=== PATIENT | female | born 1965 | race Hispanic/Latino ===

== ENCOUNTER 2017-09-05 11:30 | Observation (INO) | payer OTHER ==
[~2017-09-05] VITALS: Ht 154.9 cm; Wt 52.8 kg
[2017-09-05 12:40] LABS: BASOPHILS % (AUTO) 0.6 % (0.0-5.0); EOSINOPHILS % (AUTO) 1.2 % (0.0-8.0); HEMATOCRIT 31.1 % (36-48); LYMPHOCYTES % (AUTO) 22.4 % (21.0-51.0); MEAN CORPUSCULAR HEMOGLOBIN 33.2 pg (27.0-33.0); MEAN CORPUSCULAR HGB CONC 35.2 g/dL (32.0-36.0); MEAN CORPUSCULAR VOLUME 94.1 fL (79-99); MONOCYTES % (AUTO) 5.3 % (3.0-13.0); NEUTROPHILS % (AUTO) 70.5 % (40.0-77.0); PLATELET COUNT (AUTO) 314 K/uL (130-400); RED CELL DISTRIBUTION WIDTH 12.9 % (11.0-15.5); WHITE BLOOD COUNT (AUTO) 7.7 K/uL (4.8-10.8)
[2017-09-05 13:05] VITALS: BP 100/53
[2017-09-05] MEDS ORDERED: DULO60CA44 PO (14:56)
[2017-09-05] MEDS ORDERED: CALDOLOR 800MG+NS 250ML 250 ML IV SCH (15:30)
[2017-09-05] MEDS ORDERED: CEFAZOLIN SODIUM 1 GM VIAL IVP SCH (15:30)
[2017-09-06] VITALS (24 sets, daily range): BP systolic 106–152; BP diastolic 59–91
[2017-09-06] MEDS ORDERED: CALDOLOR 800MG+NS 250ML 250 ML IV ONE (10:25)
[2017-09-06] MEDS ORDERED: GLYCOPYRROLATE 0.2 MG/ML 5 ML VIAL ONE (10:29)
[2017-09-06] MEDS ORDERED: LIDOCAINE PF 2% 5ML ABBOJECT ONE (10:29)
[2017-09-06] MEDS ORDERED: NEOSTIGMINE 5MG/5ML SYR IV ONE (10:29)
[2017-09-06] MEDS ORDERED: DEXAMETHASONE SOD PHOSPHATE 10MG/ML 1ML VIAL ONE (10:29)
[2017-09-06] MEDS ORDERED: MIDAZOLAM HCL 1 MG/ML 2ML VIAL ONE (10:29)
[2017-09-06] MEDS ORDERED: NALOXONE HCL 0.4 MG/1 ML ML IVP PRN (10:30)
[2017-09-06] MEDS ORDERED: DiphenhydrAMINE HCL 50 MG/ML VIAL IV PRN (10:30)
[2017-09-06] MEDS ORDERED: PROMETHAZINE HCL 25 MG/ML 1ML AMPULE IM PRN (10:30)
[2017-09-06] MEDS ORDERED: DOCUSATE SODIUM 100 MG CAP PO PRN (10:30)
[2017-09-06] MEDS ORDERED: FENTANYL CITRATE PF 50 MCG/1 ML 5ML AMP IV ONE (10:30)
[2017-09-06] MEDS ORDERED: ONDANSETRON HCL 4 MG/2 ML VIAL IV PRN (10:30)
[2017-09-06] MEDS ORDERED: METOCLOPRAMIDE 10 MG/2 ML VIAL IV PRN (10:30)
[2017-09-06] MEDS ORDERED: DIPHENHYDRAMINE HCL 25 MG CAPSULE PO PRN (10:30)
[2017-09-06] MEDS ORDERED: BISACODYL 10 MG SUPP.RECT RC PRN (10:30)
[2017-09-06] MEDS ORDERED: MEPERIDINE 10MG/ML 50ML PCA 50 ML IV PRN (10:30)
[2017-09-06] MEDS ORDERED: SIMETHICONE 80 MG TAB.CHEW PO PRN (10:30)
[2017-09-06] MEDS ORDERED: MEPERIDINE-PF 75 MG/ML SYG IM PRN (10:30)
[2017-09-06] MEDS ORDERED: PROPOFOL 10 MG/ML 20ML VIAL IV ONE (10:30)
[2017-09-06] MEDS: CEFAZOLIN SODIUM 1 GM VIAL ONE ×2 (10:55→11:00)
[2017-09-06] MEDS: LACTATED RINGERS 1000ML 1,000 ML IV SCH ×2 (10:55→18:44)
[2017-09-06] MEDS ORDERED: METO100T7 PO (10:57)
[2017-09-06] MEDS ORDERED: MEPERIDINE-PF 25 MG/ML SYG ONE ×2 (12:46→13:01)
[2017-09-06] MEDS: PROMETHAZINE HCL 25 MG/ML 1ML AMPULE IM PRN ×2 (13:03→23:50)
[2017-09-06] MEDS: DEXTROSE 5 %-0.45 % NACL 1,000 ML IV PRN (14:38)
[2017-09-06] MEDS: CALDOLOR 800MG+NS 250ML 250 ML IVPB SCH (18:31)
[2017-09-07 00:28] VITALS: BP_SYST 127; BP_SYST 132; BP_DIAS 63; BP_DIAS 66
[2017-09-07] MEDS: DEXTROSE 5 %-0.45 % NACL 1,000 ML IV PRN ×2 (01:35→12:16)
[2017-09-07] MEDS: CALDOLOR 800MG+NS 250ML 250 ML IVPB SCH (02:04)
[2017-09-07 04:01] VITALS: BP 100/56
[2017-09-07 06:51] LABS: HEMATOCRIT 28.1 % (36-48); MEAN CORPUSCULAR HEMOGLOBIN 30.9 pg (27.0-33.0); MEAN CORPUSCULAR HGB CONC 33.5 g/dL (32.0-36.0); MEAN CORPUSCULAR VOLUME 92.2 fL (79-99); PLATELET COUNT (AUTO) 314 K/uL (130-400); RED BLOOD CELL COUNT(AUTO) 3.05 MIL/uL (4.00-5.50); WHITE BLOOD COUNT (AUTO) 12.9 K/uL (4.8-10.8)
[2017-09-07 07:55] VITALS: BP 104/56
[2017-09-07] MEDS ORDERED: IBUPROFEN 800 MG TAB PO SCH (10:30)
[2017-09-07 12:03] VITALS: BP 115/65
== END 2017-09-07 14:00 | disposition home or self-care (01) ==
LOC: EDSTATUS 11:30 → DAHIP 09-06 09:56 → WSH 09-06 14:35
PROVIDERS: ADMIT Obstetrics & Gynecology; ATTEND Obstetrics & Gynecology
DX: N92.1 Excessive and frequent menstruation with irregular cycle (principal)
CPT/HCPCS: 36415 ×2; 58260; 84703; 85025; 85027; 86850; 86900; 86901; 88307; 96365; 96366 ×2; 96372; A4218; A4344; A4930; G0378 ×29; J0690; J1100; J1741 ×3; J2001; J2175 ×4; J2250; J2550 ×2; J2704; J2710; J3010; J3490; J7030; J7120

== ENCOUNTER 2017-09-20 11:32 | Observation (INO) | payer OTHER ==
[~2017-09-20] VITALS: Ht 154.9 cm; Wt 51.3 kg
[~2017-09-20 11:32] MED LIST: DULO60CA44 PO; METO100T7 PO
[2017-09-20 11:50] VITALS: BP 114/59
[2017-09-20 15:50] VITALS: BP 117/66
== END 2017-09-20 16:30 | disposition home or self-care (01) ==
LOC: WSH 11:32
PROVIDERS: ADMIT Obstetrics & Gynecology; ATTEND Obstetrics & Gynecology
DX: N73.9 Female pelvic inflammatory disease, unspecified (principal); N20.0 Calculus of kidney; Z90.710 Acquired absence of both cervix and uterus
CPT/HCPCS: 74176; G0378 ×6